=== PATIENT | male | born 1960 | race Hispanic/Latino ===

== ENCOUNTER 2024-07-18 15:10 | Emergency (ER) | payer BC, OTHER ==
[~2024-07-18] VITALS: Ht 172.7 cm; Wt 93.0 kg
--- NOTE | 2024-07-18 15:20 | ERN ---
ED Note History of Present Illness Stated Complaint: HEAD INJURY 5 DAYS AGO Chief Complaint: Head Injury Time Seen by MD: 15:15 Dictation: PATIENT IS A 64-YEAR-OLD MALE STATES HE WAS WORKING ON HIS TRAVEL TRAILER FIVE DAYS AGO AND USING A ARM PIPE WHEN THE PIPE SLIPPED IN AND HIT HIM IN THE RIGHT FRONTAL AREA OF HIS SCALP. NO LOC NO NAUSEA VOMITING HE SAID HE HAD A LACERATION WHICH HAS A DERMABOND TYPE OF GLUE ON IT AND STERI-STRIPS WERE PLACED BY HIS . HE STATES HE IS NOT ON ANY BLOOD THINNERS HOWEVER HAS HAD A CONTIN UOUS HEADACHE SINCE THE INCIDENT AND IS CONCERNED ABOUT POSSIBLE HEAD INJURY. HE STATES ALSO HE HAS TAKEN NOTHING PRIOR TO ARRIVAL FOR PAIN BECAUSE HE DOES NOT LIKE TO TAKE ANYTHING UNLESS HE NEEDS IT. NIH IS 0 GAIT IS STEADY VOICE IS CLEAR Allergies: Coded Allergies: No Known Allergies (Unverified Allergy, Unknown, 07/18/24) Past Medical History Past Medical History: Other Additional Past Medical Hx: GOUT Surgical History: None PSYCH History: no pertinent psych hx RN Note Reviewed/Agreed w/PFSH: Yes Review of System Dictation CONSTITUTIONAL: NEGATIVE EXCEPT FOR HPI HEAD/FACE: NEGATIVE EXCEPT FOR HPI RIGHT FRONTAL SCALP LACERATION WITH GLUE PLACED AT HOME, STERI-STRIPS EENT: NEGATIVE EXCEPT FOR HPI RESPIRATORY: NEGATIVE EXCEPT FOR HPI GASTROINTESTINAL/ABDOMINAL: NEGATIVE EXCEPT FOR HPI GENITOURINARY: NEGATIVE EXCEPT FOR HPI MUSCULOSKELETAL: NEGATIVE EXCEPT FOR HPI INTEGUMENTARY: NEGATIVE EXCEPT FOR HPI NEUROLOGICAL/PSYCH: NEGATIVE EXCEPT FOR HPI GENERALIZED HEADACHE HEMATOLOGIC/LYMPHATIC: NEGATIVE EXCEPT FOR HPI ALL SYSTEMS NEGATIVE, EXCEPT NOTED ABOVE. 13 POINT REVIEW OF SYSTEMS ASSESSED AND ALL NEGATIVE EXCEPT FOR ABOVE. Initial Vital Sign VS Vital Signs Date Time Temp Pulse Resp B/P (MAP) Pulse Ox O2 Delivery O2 Flow Rate FiO2 07/18/24 15:13 98.6 75 16 124/83 98 Room Air 0 07/18/24 17:45 21 Physical Exam Dictation VITAL SIGNS REVIEWED GENERAL APPEARANCE: ALERT, ORIENTED X 3, MILD ACUTE DISTRESS, WELL DEVELOPED, NOURISHED. HEAD AND FACE: RIGHT FRONTAL SCALP LACERATION WITH GLUE AND STERI-STRIPS THAT WERE PLACED AT HOME FIVE DAYS AGO. NO ERYTHEMA NO SWELLING EYES: PERRL, PINK CONJUNCTIVAS, EYELID NO TRAUMA, ANTERIOR CHAMBER WITH ARCUS SENILIS. EARS: PINNAS INTACT AND NO SIGNS OF TRAUMA OR ERYTHEMA EAR CANALS CLEAR AND NO DISCHARGE TM NO ERYTHEMA NO HEMOTYMPANUM NOSE: NO DISCHARGE, NO BLEEDING. OROPHARYNX: MOUTH NORMAL, TONGUE PINK, PHARYNX CLEAR,NO ERYTHEMA, TONSILS NO EXUDATES, NO ABSCESSES NOTED, MUCOUS MEMBRANE MOIST NECK: SUPPLE, NON-TENDER, NO THYROMEGALY, NO MASSES, NO JVD, NO BRUITS BREAST:DEFERRED CHEST:NO TENDERNESS, NO CREPITUS, NO PARADOXICAL MOVEMENT, NO RETRACTIONS LUNGS:CLEAR, WELL-VENTILATED, SYMMETRIC, NO RALES, NO WHEEZING, NO RHONCHI, NO STRIDOR, GOOD BREATH SOUNDS BILATERALLY HEART: REGULAR RATE, REGULAR RHYTHM, NO MURMUR, NO GALLOPS VASCULAR: NO PERIPHERAL EDEMA, ABDOMEN: SOFT, POSITIVE BOWEL SOUNDS, NONDISTENDED, NO GUARDING, NONTENDER, NO REBOUND, NO MASSES NO HEPATOMEGALY, NO SPLENOMEGALY, NO GABRIEL'S SIGN, NO HERNIAS. RECTAL: DEFERRED GENITAL: DEFERRED NEUROLOGICAL: NORMAL SPEECH, MOTOR FUNCTION INTACT, SENSORY FUNCTION INTACT NEUROLOGICALLY INTACT STEADY GAIT AND VOICE CLEAR MUSCULOSKELETAL: NECK NONTENDER, FULL RANGE OF MOTION, BACK NONTENDER, FULL RANGE OF MOTION, EXTREMITIES: NONTENDER, FULL RANGE OF MOTION SKIN: COLOR PINK, DRY, NO TURGOR, NO RASH, NO LACERATIONS, NO ABRASIONS, NO CONTUSIONS. LYMPHATIC: DEFERRED Results (Laboratory/Radiology) Laboratory/Radiology SERVICE 1517 REASON: HEAD INJURY FIVE DAYS AGO WITH FRONTAL LACERATION AND CONTINUOUS H/A ORDERING PHYSICIAN: KONSTANTIN MOSCOSO NP PROCEDURE: HEAD WO - CT HEAD/BRAIN W/O CONTRAST Exam: NONCONTRAST CT BRAIN REASON: HEAD INJURY FIVE DAYS AGO WITH FRONTAL LACERATION AND CONTINUOUS H/A. COMPARISON: None. TECHNIQUE: Images are obtained from vertex to the skull base. The exam was performed without IV contrast. FINDINGS: There is normal appearing brain parenchyma. There are no focal mass lesions. There is is no evidence of intracranial hemorrhage or acute stroke. Ventricles and sulci appear generous consistent with age or mild involutional change. Posterior fossa and brainstem structures are unremarkable. Paranasal sinuses and remaining extracranial soft tissues appear normal as well. IMPRESSION: 1. Generous ventricles and sulci consistent with age or mild involutional change. 2. Otherwise unremarkable noncontrast CT brain, no evidence of intracranial hemorrhage or other acute finding CT was performed with one or more following dose reduction techniques: automated exposure control, adjustment of the mA and kv according to patient's size, or use of a iterative reconstruction technique. Labs Reviewed?: Yes ED Course ED Course Orders Procedure Category Date Status Time Acetaminophen 500mg PHA 07/18/24 Complete Tab (Tylenol 500mg T 15:30 Ct Head/Brain W/O CT 07/18/24 Resulted Contrast 15:17 Current Medications Medications (Trade) Dose Ordered Sig/Leonel Route PRN Reason Start Time Stop Time Status Last Admin Dose Admin Acetaminophen (TYLenol 500MG TAB) 1,000 mg ONCE ONCE PO 07/18/24 15:30 07/18/24 15:31 DC 07/18/24 16:35 Vital Signs Date Time Temp Pulse Resp B/P (MAP) Pulse Ox O2 Delivery O2 Flow Rate FiO2 07/18/24 17:45 98.6 72 16 121/78 98 Room Air* 0 21 07/18/24 15:13 98.6 75 16 124/83 98 Room Air 0 1605, PATIENT NEUROLOGICALLY INTACT STATES HEADACHES RESOLVING WITH TYLENOL. DISCHARGED HOME WITH POSTTRAUMATIC HEADACHE TOLD TO SEE HIS PRIMARY CARE DOCTOR Medical Decision Making MDM MEDICAL DECISION-MAKING BASED ON CT TO RULE OUT HEAD INJURY/BLEED AFTER CLOSED HEAD INJURY SEVERAL DAYS AGO WITH A FRONTAL LACERATION THAT WAS REPAIRED AT HOME. CT NEGATIVE, PATIENT DIAGNOSED WITH POSTTRAUMATIC HEADACHE AND NEUROLOGICALLY INTACT. DX & DISP Disposition: Discharge Departure Impression: Primary Impression: Posttraumatic headache Additional Impressions: Scalp laceration, Closed head injury Condition: Stable Additional Instructions: FOLLOW-UP WITH PRIMARY CARE PROVIDER IN 1 TO 2 DAYS. TAKE MEDICATIONS DIRECTED HERE IN THE EMERGENCY ROOM. OKAY TO CONTINUE HOME MEDICATIONS UNLESS OTHERWISE DISCUSSED DURING YOUR VISIT IN THE EMERGENCY ROOM TODAY. RETURN TO YOUR NEAREST EMERGENCY ROOM IF SYMPTOMS WORSEN OR IF THERE IS NO IMPROVEMENT. CALL 911 IF YOU NEED IMMEDIATE ASSISTANCE. TAKE TYLENOL OR MOTRIN [id number] NEEDED AND IF NO CONTRAINDICATIONS ARE PRESENT. INCREASE ORAL HYDRATION. A WOUND CULTURE OR URINE CULTURE WAS ORDERED HERE IN THE EMERGENCY ROOM DEPARTMENT PLEASE FOLLOW-UP WITH PRIMARY CARE PROVIDER AND ADVISE THEM TO GET REPEAT PORTS FROM OUR FACILITY. IF YOU HAD ANY BENITEZ WRAP/SPLINTS THAT WERE APPLIED HERE, PLEASE DO NOT REMOVE THEM UNTIL YOU SEE YOUR PRIMARY CARE OR SPECIALTY. FOLLOW UP WITH YOUR PRIMARY CARE DOCTOR IN 1-2 DAYS FOR MANAGEMENT. Time of Disposition: 16:07 I have reviewed the case, and I agree with, Diagnosis and Plan ATTESTATION BY PHYSICIAN I PERFORMED THE SUBSTANTIVE PORTION OF THE VISIT. I HAVE REVIEWED AND PERSONALLY MADE AND APPROVED THE MANAGEMENT PLAN THAT IS DOCUMENTED IN THE NOTE BY MYSELF FOR THE A PP. I ACKNOWLEDGED FOR RESPONSIBILITY FOR THE PATIENT'S MANAGEMENT PLAN. KONSTANTIN MOSCOSO NP Jul 18, 2024 15:20 JOSIAS KAPADIA MD Jul 19, 2024 17:50
--- NOTE | 2024-07-18 16:04 | HMCIMG ---
Exam: NONCONTRAST CT BRAIN REASON: HEAD INJURY FIVE DAYS AGO WITH FRONTAL LACERATION AND CONTINUOUS H/A. COMPARISON: None. TECHNIQUE: Images are obtained from vertex to the skull base. The exam was performed without IV contrast. FINDINGS: There is normal appearing brain parenchyma. There are no focal mass lesions. There is is no evidence of intracranial hemorrhage or acute stroke. Ventricles and sulci appear generous consistent with age or mild involutional change. Posterior fossa and brainstem structures are unremarkable. Paranasal sinuses and remaining extracranial soft tissues appear normal as well. IMPRESSION: 1. Generous ventricles and sulci consistent with age or mild involutional change. 2. Otherwise unremarkable noncontrast CT brain, no evidence of intracranial hemorrhage or other acute finding CT was performed with one or more following dose reduction techniques: automated exposure control, adjustment of the mA and kv according to patient's size, or use of a iterative reconstruction technique.
[2024-07-18] MEDS: acetaMINOPHEN 500 MG TABLET PO ONE (16:35)
[2024-07-18 17:45] VITALS: BP 121/78; PULSE 72; RESP 16; TEMP 98.6; O2SAT 98
== END 2024-07-18 17:47 | disposition home or self-care (01) ==
LOC: EDH 15:10
DX: S01.01XA Laceration without foreign body of scalp, initial encounter (principal); G44.309 Post-traumatic headache, unspecified, not intractable; M10.9 Gout, unspecified; X58.XXXA Exposure to other specified factors, initial encounter; Y93.89 Activity, other specified; Y92.89 Other specified places as the place of occurrence of the external cause; Y99.8 Other external cause status
CPT/HCPCS: 70450; 99284